=== PATIENT | male | born 1960 | race Asian ===

== ENCOUNTER 2021-03-14 07:50 | Outpatient (REF) | payer OTHER, SELFPAY ==
[2021-03-14 11:27] LABS: Alanine Aminotransferase 19 U/L (0-40); Albumin Level 4.2 g/dL (3.5-5.0); Alkaline Phosphatase 42 U/L (39-117); Anion Gap 11 (12-20); Aspartate Amino Transferase 18 U/L (5-37); Bilirubin Total 0.8 mg/dL (0.0-1.0); Blood Urea Nitrogen 18 mg/dL (9-16); Carbon Dioxide 28 mmol/L (22-29); Chloride 108 mmol/L (96-108); Cholesterol 187 mg/dL; Estimated Glomerular Filt Rate > 60; Glucose Fasting 91 mg/dL (60-99); HDL Cholesterol 49 mg/dL; LDL Cholesterol Calculated 120 mg/dl; Potassium 4.6 mmol/L (3.3-5.1); Sodium 142 mmol/L (135-145); Triglycerides 94 mg/dL
[2021-03-14 11:50] LABS: TSH reflex Free T4 2.05 uIU/mL (0.32-4.0); Vitamin D 25-OH Total 23.2 ng/mL (>30)
== END 2021-03-14 07:51 | disposition home or self-care (01) ==
LOC: HO.WFDLDS 07:50
PROVIDERS: Visit Provider Family Medicine
DX: Z00.00 Encounter for general adult medical examination without abnormal findings (principal); E55.9 Vitamin D deficiency, unspecified
CPT/HCPCS: 36415; 80053; 80061; 82306; 84443

== ENCOUNTER 2022-01-17 07:36 | Outpatient (REF) | payer OTHER, SELFPAY ==
[2022-01-17 11:25] LABS: MANUAL DIFF FLAG NO
[2022-01-17 11:49] LABS: Basophils Percent Auto 0.5 % (0-2); Eosinophils Absolute Auto 0.2 X10*3/uL (0.0-0.4); Hematocrit 43.4 % (42.0-52.0); Hemoglobin 13.2 g/dl (14.0-18.0); Imm Gran Abs Auto 0.03 X10*3/uL (0.00-0.03); Imm Gran Pct Auto 0.5 % (0.0-0.4); Lymphocytes Absolute Auto 1.9 X10*3/uL (1.2-4.9); Lymphocytes Percent Auto 30.6 % (20-40); Mean Corpuscular HGB Conc 30.4 g/dl (31.0-36.0); Mean Corpuscular Hemoglobin 19.9 pg (27.0-33.0); Mean Corpuscular Volume 65.6 fL (80.0-98.0); Monocytes Absolute Auto 0.5 X10*3/uL (0.1-1.2); Monocytes Percent Auto 7.3 % (2-11); Neutrophils Absolute Auto 3.7 x10*3/uL (2.0-8.3); Neutrophils Percent Auto 58.1 % (45-73); Platelet Count 214 X10*3/uL (160-400); Red Blood Count 6.62 X10*6/uL (4.60-5.80); Red Cell Distribution Width 17.3 % (11.0-16.0); White Blood Count 6.3 X10*3/uL (4.8-10.8)
[2022-01-17 12:03] LABS: Alanine Aminotransferase 20 U/L (0-40); Albumin Level 4.1 g/dL (3.5-5.0); Alkaline Phosphatase 43 U/L (39-117); Anion Gap 9 (12-20); Aspartate Amino Transferase 20 U/L (5-37); Bilirubin Total 0.6 mg/dL (0.0-1.0); Blood Urea Nitrogen 15 mg/dL (9-16); Carbon Dioxide 30 mmol/L (22-29); Chloride 106 mmol/L (96-108); Estimated Glomerular Filt Rate > 60; Glucose Random 103 mg/dL (60-115); Iron 78 mcg/dL (45-160); Percent Iron Saturation 28 % (15-50); Potassium 4.3 mmol/L (3.3-5.1); Sodium 141 mmol/L (135-145); Total Iron Binding Capacity 279 mcg/dL (228-428); Total Protein 6.9 g/dL (6.5-8.0); Unsaturated Iron Binding 201 ug/dL
== END 2022-01-17 07:37 | disposition home or self-care (01) ==
LOC: HO.WFDLDS 07:36
PROVIDERS: Visit Provider Family Medicine
DX: Z00.00 Encounter for general adult medical examination without abnormal findings (principal); D64.9 Anemia, unspecified
CPT/HCPCS: 36415; 80053; 83540; 85025

== ENCOUNTER 2022-02-27 08:25 | Day surgery (SDC) | payer OTHER, SELFPAY ==
--- NOTE | 2022-02-23 15:34 | HO.ANESPROP2 ---
Documented by User: Yahaira Bain NP 02/23/22 15:34 HPI - Anesthesia Eval Consult details Narrative: 62yo M for Colonoscopy [facility] Active Problems Active Problems: All Active Problems (Updated 02/21/22 @ 16:17 by Elvia Mancilla RN) Hypertension, essential (Acute) Vitamin D deficiency (Acute) Erectile dysfunction (Acute) Borderline anemia (Acute) Knee clicking (Acute) Low vitamin D level (Acute) Past Medical History Medical History HTN (hypertension) Family History Family History Father No problems noted. Mother Diabetes Hypertension Sister Colon cancer Daughter In good health Son No problems noted. Son No problems noted. Surgical History Surgical History History of lumbar surgery Hx of colonoscopy Social History Social History (Updated 03/30/21 @ 11:57 by [employer]igs[employer]Book Adkins) Housing: House Patient Tobacco Use Status: Never used Tobacco Use of substances other than those prescribed or required for medical reasons: No Are you DNR?: No Advance Directives: No Advance Directives Information Provided: Yes Current occupational status: employed Meds Allergies Allergy/AdvReac Type Severity Reaction Status Date / Time No Known Allergies Allergy Verified 02/27/22 08:52 Exam Exam Date and Time: February 23, 2022 1534 Pertinent Lab Results Pertinent Lab Results: Laboratory Tests 01/17/22 01/17/22 07:40 07:40 WBC 6.3 Hgb 13.2 L Hct 43.4 Plt Count 214 Sodium 141 Potassium 4.3 Chloride 106 Carbon Dioxide 30 H BUN 15 Creatinine 0.95 Assessment and Plan Assessment Anesthesia Assessment: Chart Reviewed Documented by User: Manohar Lennon MD 02/27/22 09:28 PMFSH Past Medical History Medical History HTN (hypertension) Family History Family History Father No problems noted. Mother Diabetes Hypertension Sister Colon cancer Daughter In good health Son No problems noted. Son No problems noted. Family history of problems with anesthesia: No Surgical History Surgical History History of lumbar surgery Hx of colonoscopy History of Problems with Anesthesia: No Social History Social History (Updated 03/30/21 @ 11:57 by [employer] Jed) Housing: House Patient Tobacco Use Status: Never used Tobacco Use of substances other than those prescribed or required for medical reasons: No Are you DNR?: No Advance Directives: No Advance Directives Information Provided: Yes Current occupational status: employed Meds Allergies Allergy/AdvReac Type Severity Reaction Status Date / Time No Known Allergies Allergy Verified 02/27/22 08:52 Exam Airway Mallampati Class: II TM Dist: >3cm Neck ROM: Full Loose/Missing/Broken Teeth: Yes, Upper and Lower Assessment and Plan Assessment Anesthesia Assessment: Anesthesia Plan Discussed Final Anesthetic Review Family History of Problems with Anesthesia: No History of Problems with Anesthesia: No NPO: Yes ASA Class: II Final Preanesthetic Review: No Changes in Pt Med Stat, Meds/Allgs Chart Reviewed, Consent Obtained/Reviewed and Anes Risks/Benef Reviewed Patient Risk: Low Procedure Risk: Low Anesthetic Plan Anesthetic Plan: MAC: Disposition: Standard PACU
[2022-02-27 08:53] VITALS: BMI 24.7
[2022-02-27 09:02] VITALS: BP 136/72; PULSE 61; RESP 15; TEMP 36.6; O2SAT 98
[2022-02-27] MEDS: Lactated Ringers 1,000 ML 100 ML IVCONT (09:10)
[2022-02-27 10:33] VITALS: BP 88/45; PULSE 50; RESP 16; TEMP 36.1; O2SAT 97
--- NOTE | 2022-02-27 10:40 | PM.OP ---
Brief Operative Note Date of Service: 02/27/22 Pre-op diagnosis: Screening Post-op diagnosis: other (Rectal polyp) Procedure: Colonoscopy to the cecum with bx/removal of polyp Surgeon: Gagandeep Zazueta Anesthesia: MAC Was an Bean Snapper used for this Procedure?: No Estimated blood loss (mL): 2.0 Pathology: other (A. Rectal polyp) Condition: stable Disposition: PACU
[2022-02-27 10:48] VITALS: BP 95/56; PULSE 53; RESP 16; O2SAT 100
[2022-02-27 11:03] VITALS: BP 139/55; PULSE 54; RESP 16; TEMP 36.1; O2SAT 98
--- NOTE | 2022-02-27 22:16 | OP_ITS ---
SURGEON: Gagandeep Zazueta MD INDICATIONS: The patient presents for evaluation of colorectal cancer screening and personal history of tubular adenoma of the colon. Full consent was obtained from him for this, including risks of bleeding and perforation. PREOPERATIVE DIAGNOSIS: Personal history of tubular adenoma of the colon. POSTOPERATIVE DIAGNOSIS: PROCEDURE PERFORMED: Colonoscopy to the cecum with biopsy removal of polyp. ESTIMATED BLOOD LOSS: COMPLICATIONS: ANESTHESIA: Preop medication used, monitored anesthesia care. ASSISTANTS: SPECIMENS: POSTOPERATIVE DIAGNOSES: Personal history of tubular adenoma of the colon, small colon polyp, diverticulosis, and internal hemorrhoids. DESCRIPTION OF PROCEDURE: The patient was placed in the left lateral decubitus position. The digital rectal exam revealed no abnormalities. The Olympus videopediatric colonoscope was entered into the rectum and advanced easily to the cecum. Once in the cecum, I did identify normal-appearing cecal pouch with appendiceal orifice and a normal-appearing ileocecal valve. The entire cecum and ileocecal valve appeared normal. There was transillumination of light deep in the right lower quadrant. The scope was slowly withdrawn assessing all mucosal surfaces carefully. Preparation was excellent. There was a mild amount of sigmoid diverticulosis. I did not visualize any sign of colitis nor angiodysplasia. The only polyp I visualized was in the proximal rectum. This was approximately 3 or 4 mm in diameter and was biopsied and completely removed with cold biopsy forceps. The scope was retroflexed in the rectum visualizing internal hemorrhoids, but no other pathology. The scope was straightened and withdrawn from the patient. He tolerated the procedure well and was returned to the recovery area in stable condition. IMPRESSION: 1. Small rectal polyp, status post biopsy removal. 2. Diverticulosis. 3. Internal hemorrhoids. PLAN: The results of biopsy will be checked. I would recommend a repeat colonoscopy in 5 years for further surveillance. He will otherwise see me on a p.r.n. basis. MD ELISA Rodriguez/LISA / [id number]
== END 2022-02-27 11:23 | disposition home or self-care (01) ==
PROVIDERS: PCP Family Medicine; Visit Provider Internal Medicine
PROC: 0DJD8ZZ Inspection of Lower Intestinal Tract, Via Natural or Artificial Opening Endoscopic (ICD-10-PCS; CPT 45378; principal; 2022-02-27 09:30)
DX: Z12.11 Encounter for screening for malignant neoplasm of colon (principal); Z86.010 Personal history of colon polyps; D12.8 Benign neoplasm of rectum; K57.30 Diverticulosis of large intestine without perforation or abscess without bleeding; K64.8 Other hemorrhoids; Z80.0 Family history of malignant neoplasm of digestive organs; I10 Essential (primary) hypertension; Z79.899 Other long term (current) drug therapy
CPT/HCPCS: 45380; 88305

== ENCOUNTER 2022-03-02 07:10 | Outpatient (REF) | payer OTHER, SELFPAY ==
[2022-03-02 07:31] LABS: MANUAL DIFF FLAG NO
[2022-03-02 08:12] LABS: Basophils Absolute Auto 0.1 X10*3/uL (0.0-0.2); Basophils Percent Auto 0.8 % (0-2); Eosinophils Absolute Auto 0.2 X10*3/uL (0.0-0.4); Hematocrit 42.3 % (42.0-52.0); Hemoglobin 13.1 g/dl (14.0-18.0); Imm Gran Abs Auto 0.02 X10*3/uL (0.00-0.03); Imm Gran Pct Auto 0.3 % (0.0-0.4); Lymphocytes Absolute Auto 1.8 X10*3/uL (1.2-4.9); Lymphocytes Percent Auto 27.9 % (20-40); Mean Corpuscular Hemoglobin 20.1 pg (27.0-33.0); Monocytes Absolute Auto 0.5 X10*3/uL (0.1-1.2); Monocytes Percent Auto 7.3 % (2-11); Neutrophils Absolute Auto 3.9 x10*3/uL (2.0-8.3); Neutrophils Percent Auto 60.7 % (45-73); Platelet Count 215 X10*3/uL (160-400); Red Blood Count 6.51 X10*6/uL (4.60-5.80); Red Cell Distribution Width 17.8 % (11.0-16.0); White Blood Count 6.4 X10*3/uL (4.8-10.8)
[2022-03-02 08:30] LABS: Alanine Aminotransferase 16 U/L (0-40); Alkaline Phosphatase 43 U/L (39-117); Anion Gap 11 (12-20); Aspartate Amino Transferase 16 U/L (5-37); Bilirubin Total 0.7 mg/dL (0.0-1.0); Blood Urea Nitrogen 14 mg/dL (9-16); Carbon Dioxide 30 mmol/L (22-29); Chloride 107 mmol/L (96-108); Estimated Glomerular Filt Rate > 60; Glucose Fasting 102 mg/dL (60-99); Iron 73 mcg/dL (45-160); Percent Iron Saturation 27 % (15-50); Potassium 4.7 mmol/L (3.3-5.1); Sodium 143 mmol/L (135-145); Total Iron Binding Capacity 269 mcg/dL (228-428); Total Protein 6.7 g/dL (6.5-8.0); Unsaturated Iron Binding 196 ug/dL
[2022-03-02 08:38] LABS: Appearance Urine CLOUDY; Color Urine YELLOW; Glucose Urine UA NEG (NEG); Leukocyte Esterase Urine NEG (NEG); Nitrite Urine NEG (NEG); PH 6.5 (5.0-8.0); Urine Blood NEG (NEG); Urine Ketones NEG (NEG); Urine Protein NEG (NEG-TRACE)
[2022-03-02 08:52] LABS: Creatinine Urine 95.84 mg/dL; Microalbumin Urine < 5.0 mg/L
[2022-03-02 08:54] LABS: TSH reflex Free T4 1.52 uIU/mL (0.32-4.0); Vitamin D 25-OH Total 28.4 ng/mL (>30)
== END 2022-03-02 07:11 | disposition home or self-care (01) ==
LOC: HO.LAB 07:10
PROVIDERS: PCP Family Medicine; Visit Provider Family Medicine
DX: Z00.00 Encounter for general adult medical examination without abnormal findings (principal); R79.89 Other specified abnormal findings of blood chemistry; I10 Essential (primary) hypertension; D64.9 Anemia, unspecified; E55.9 Vitamin D deficiency, unspecified
CPT/HCPCS: 36415; 80053; 81003; 82043; 82306; 83540; 84443; 85025

== ENCOUNTER 2022-06-13 08:34 | Outpatient (REF) | payer OTHER, SELFPAY ==
[2022-06-13 11:24] LABS: MANUAL DIFF FLAG NO
[2022-06-13 11:52] LABS: Basophils Absolute Auto 0.1 X10*3/uL (0.0-0.2); Eosinophils Absolute Auto 0.2 X10*3/uL (0.0-0.4); Hematocrit 44.4 % (42.0-52.0); Hemoglobin 13.9 g/dl (14.0-18.0); Imm Gran Abs Auto 0.03 X10*3/uL (0.00-0.03); Imm Gran Pct Auto 0.5 % (0.0-0.4); Immature Retic Fraction 27.8 % (2.3-13.4); Lymphocytes Absolute Auto 1.4 X10*3/uL (1.2-4.9); Lymphocytes Percent Auto 23.8 % (20-40); Mean Corpuscular HGB Conc 31.3 g/dl (31.0-36.0); Mean Corpuscular Hemoglobin 20.5 pg (27.0-33.0); Mean Corpuscular Volume 65.4 fL (80.0-98.0); Monocytes Absolute Auto 0.4 X10*3/uL (0.1-1.2); Monocytes Percent Auto 7.1 % (2-11); Neutrophils Absolute Auto 3.7 x10*3/uL (2.0-8.3); Neutrophils Percent Auto 64.6 % (45-73); Platelet Count 217 X10*3/uL (160-400); Red Blood Count 6.79 X10*6/uL (4.60-5.80); Red Cell Distribution Width 17.9 % (11.0-16.0); Retic HGB Equivalent 24.6 pg (30.0-35.0); Reticulocyte Percent 1.8 % (0.5-1.8); Reticulocytes Absolute 0.122 X10*6/uL (0.026-0.095); White Blood Count 5.8 X10*3/uL (4.8-10.8)
[2022-06-13 12:18] LABS: Alanine Aminotransferase 30 U/L (0-40); Albumin Level 4.1 g/dL (3.5-5.0); Alkaline Phosphatase 44 U/L (39-117); Anion Gap 11 (12-20); Aspartate Amino Transferase 26 U/L (5-37); Bilirubin Total 0.7 mg/dL (0.0-1.0); Blood Urea Nitrogen 17 mg/dL (9-16); Calcium 9.1 mg/dL (8.4-10.2); Carbon Dioxide 31 mmol/L (22-29); Chloride 106 mmol/L (96-108); Estimated Glomerular Filt Rate > 60; Ferritin 156 ng/mL (20-250); Glucose Random 100 mg/dL (60-115); Iron 130 mcg/dL (45-160); Percent Iron Saturation 48 % (15-50); Potassium 4.5 mmol/L (3.3-5.1); Sodium 143 mmol/L (135-145); TSH reflex Free T4 1.41 uIU/mL (0.32-4.0); Total Iron Binding Capacity 273 mcg/dL (228-428); Total Protein 6.9 g/dL (6.5-8.0); Unsaturated Iron Binding 143 ug/dL; Vitamin D 25-OH Total 33.3 ng/mL (>30)
[2022-06-13 12:47] LABS: Folate 14.6 ng/mL (> or = 4.0); Vitamin B12 417 pg/mL (200-900)
== END 2022-06-13 08:35 | disposition home or self-care (01) ==
LOC: HO.WFDLDS 08:34
PROVIDERS: Visit Provider Family Medicine
DX: Z00.00 Encounter for general adult medical examination without abnormal findings (principal); E55.9 Vitamin D deficiency, unspecified; D64.9 Anemia, unspecified; E53.8 Deficiency of other specified B group vitamins
CPT/HCPCS: 36415; 80053; 82306; 82607; 82728; 82746; 83540; 84443; 85025; 85045

== ENCOUNTER 2022-09-21 08:03 | Outpatient (REF) | payer OTHER, SELFPAY ==
[2022-09-21 11:14] LABS: MANUAL DIFF FLAG NO
[2022-09-21 11:29] LABS: Basophils Absolute Auto 0.1 X10*3/uL (0.0-0.2); Eosinophils Absolute Auto 0.2 X10*3/uL (0.0-0.4); Eosinophils Percent Auto 3.7 % (0-4); Hematocrit 46.1 % (42.0-52.0); Hemoglobin 14.3 g/dl (14.0-18.0); Imm Gran Abs Auto 0.02 X10*3/uL (0.00-0.03); Imm Gran Pct Auto 0.3 % (0.0-0.4); Lymphocytes Absolute Auto 1.5 X10*3/uL (1.2-4.9); Lymphocytes Percent Auto 24.8 % (20-40); Mean Corpuscular Hemoglobin 20.4 pg (27.0-33.0); Mean Corpuscular Volume 65.8 fL (80.0-98.0); Monocytes Absolute Auto 0.4 X10*3/uL (0.1-1.2); Monocytes Percent Auto 6.8 % (2-11); Neutrophils Absolute Auto 3.8 x10*3/uL (2.0-8.3); Neutrophils Percent Auto 63.4 % (45-73); Platelet Count 233 X10*3/uL (160-400); Red Blood Count 7.01 X10*6/uL (4.60-5.80); Red Cell Distribution Width 17.7 % (11.0-16.0)
[2022-09-21 11:49] LABS: Alanine Aminotransferase 39 U/L (0-40); Albumin Level 4.2 g/dL (3.5-5.0); Alkaline Phosphatase 45 U/L (39-117); Anion Gap 12 (12-20); Aspartate Amino Transferase 32 U/L (5-37); Bilirubin Total 1.1 mg/dL (0.0-1.0); Blood Urea Nitrogen 18 mg/dL (9-16); Calcium 9.3 mg/dL (8.4-10.2); Carbon Dioxide 29 mmol/L (22-29); Chloride 106 mmol/L (96-108); Cholesterol 211 mg/dL; Estimated Glomerular Filt Rate > 60; Glucose Fasting 95 mg/dL (60-99); HDL Cholesterol 61 mg/dL; LDL Cholesterol Calculated 138 mg/dl; Potassium 4.4 mmol/L (3.3-5.1); Sodium 143 mmol/L (135-145); Total Protein 6.9 g/dL (6.5-8.0); Triglycerides 61 mg/dL
[2022-09-21 12:06] LABS: Appearance Urine Clear; Color Urine Yellow; Glucose Urine UA Negative (Negative); Leukocyte Esterase Urine Negative (Negative); Nitrite Urine Negative (Negative); Specific Gravity - Urine 1.025 (1.005-1.025); Urine Blood Negative (Negative); Urine Ketones Negative (Negative); Urine Protein Negative (Neg-Trace)
[2022-09-21 13:00] LABS: Microalbum/Creatinine Ratio Ur 5.4 ug/mg cr
== END 2022-09-21 08:04 | disposition home or self-care (01) ==
LOC: HO.WFDLDS 08:03
PROVIDERS: Visit Provider Family Medicine
DX: Z00.00 Encounter for general adult medical examination without abnormal findings (principal); I10 Essential (primary) hypertension
CPT/HCPCS: 36415; 80053; 80061; 81003; 82043; 84443; 85025

== ENCOUNTER 2023-02-27 11:51 | Outpatient (AMB) | payer OTHER, SELFPAY ==
--- NOTE | 2023-02-27 12:02 | MHC.PC.OV ---
Vital Signs 02/27/23 12:12 Weight 158 lb 6 oz BP 120/72 Blood Pressure Location Lt brachial Position Left Lateral Respiration 14 Pulse 73 Pulse Source Pulse Oximeter Temp 98.4 F Intake Visit Reasons: Growth on left side of stomach Intake Note: for growth left abd Reservoir Caretaker Required: No Accompanied by: Self / Same As Patient Allergies No Known Allergies Allergy (Verified 06/16/22 11:54) Medication List - Last Reconciled 02/27/23 by Elvia Covington, RN cholecalciferol (vitamin D3) 50 mcg PO DAILY ferrous sulfate 324 mg PO DAILY 30 days losartan 12.5 mg (1/2 x 25 mg) PO DAILY 90 days tadalafil 20 mg PO DAILY PRN 30 days Tobacco use date assessed: 03/30/21 Dental Screening Did you have a dental visit in the last 12 months?: Yes HPI Growth on left side of stomach HPI Details 63 y/o male presents for a skin tag at L abdomen. HPI Comments History of Present Illness Details growth right abd. fyi pt states he is taking vit d 1x/week and ferrous sulfate 1-2xs/week PFSH Medical History HTN (hypertension) Surgical History History of lumbar surgery Hx of colonoscopy Family History Father No problems noted. Mother Diabetes Hypertension Sister Colon cancer Daughter In good health Son No problems noted. Son No problems noted. Social History Housing: House Patient Tobacco Use Status: Never used Tobacco Current occupational status: employed Cognitive needs: No Hearing needs: No Vision needs: Yes Questionnaire Thrive Questionnaire Date Thrive assessed: 03/30/21 DUSTY-7 AMB Questionnaire DUSTY-7 Date DUSTY - 7 assessed: 03/30/21 Source: Developed by Drs. Gagandeep Tejeda, Sheryl Roca, Dallas Schneider and colleagues, with an educational alyson from [employer]. Physical exam (Primary Care) Vital Signs: Last Vital Signs Temp 98.4 F 02/27/23 12:12 Pulse 73 02/27/23 12:12 Resp 14 02/27/23 12:12 BP 120/72 02/27/23 12:12 Tobacco/Smoking Status: Tobacco use Status Tobacco use date assessed 03/30/21 02/27/23 12:04 Patient Tobacco Use Status Never used Tobacco 02/27/23 12:04 Tobacco use type 02/27/23 12:11 Thrive Assessment: Date of Thrive Assessment Date Thrive assessed 03/30/21 02/27/23 12:04 Skin Other: Bifurcated palpoid skin tag about 1cm in diameter each Assessment and Plan Assessment & Plan (1) Skin tag: Code(s): L91.8 - Other hypertrophic disorders of the skin Plan: Persistent large skin tag at left abdomen, waist band region. Patient has had to treatments already. Lesion prepped and draped in the usual fashion. Used his to freeze cryotherapy freeze in 3 freeze/thaw cycles. Reviewed with patient what to expect following this procedure. Given that patient has already had two cryotherapy treatments already, I have treated today but I have made a referral to Dermatology. He cancel this if treatment is fully successful. Otherwise can follow-up with Dermatology. Medications: Refilled losartan 12.5 mg (1/2 x 25 mg) PO DAILY 45 tabs 0RF 90 days tadalafil administer approximately 30min before sexual activity; do not use more than 1 dose per 24hrs 20 mg PO DAILY PRN 30 tabs 5RF sexual activity 30 days N52.9 - Male erectile dysfunction, unspecified cholecalciferol (vitamin D3) 50 mcg PO DAILY 90 caps 3RF D64.9 - Anemia, unspecified Coding Level of Care Code Est Pt Level 3 (11966) Diagnoses Skin tag L91.8
[2023-02-27 12:12] VITALS: BP 120/72; PULSE 73; RESP 14; TEMP 36.9
== END 2023-02-27 12:57 | disposition home or self-care (01) ==
PROVIDERS: Visit Provider Family Medicine
DX: L91.8 Other hypertrophic disorders of the skin (principal)
CPT/HCPCS: 99213

== ENCOUNTER 2023-11-14 11:47 | Outpatient (AMB) | payer OTHER, SELFPAY ==
--- NOTE | 2023-11-14 11:52 | A.OFFPC_ITS ---
Vital Signs 11/14/23 11:59 Height 5 ft 7 in Weight 166 lb 6 oz BMI 26.1 BP 138/82 Blood Pressure Location Lt brachial Position Sitting Respiration 16 Pulse 71 Pulse Source Pulse Oximeter Temp 98.2 F Temp Source Oral Pulse Oximetry (%) 97 Oxygen Delivery Method Room Air Intake Visit Reasons: f/u Intake Note: Follow up. Right knee pain, trouble bending. Home bp cuff reading 137/84 Person Investigator Required: No Allergies No Known Allergies Allergy (Verified 11/14/23 11:53) Tobacco use date assessed: 11/14/23 Dental Screening Dental Screen Date: 11/14/23 Did you have a dental visit in the last 12 months?: Yes Did you have a dental problem in the last 6 months where you did not have access to dental care?: No Was dental information given to patient?: Patient has dentist HPI f/u HPI Details 63 y/o male [facility] Pt has complaints of R knee pain. He reports he feels clicking in there. He walks about 3 miles a day and notes the last couple days he might have overdone his exercise. Pt notes he is due for a tetatnus shot. [facility] Medical History HTN (hypertension) Surgical History History of lumbar surgery Hx of colonoscopy Family History Father No problems noted. Mother Diabetes Hypertension Sister Colon cancer Daughter In good health Son No problems noted. Son No problems noted. Social History Housing: House Patient Tobacco Use Status: Never used Tobacco e-Cigarette/Vaping Use: Never Used Second Hand Smoke Exposure: No Current occupational status: employed Cognitive needs: No Hearing needs: No Vision needs: Yes Questionnaire PHQ-9 Over the last 2 weeks, how often have you been bothered by any of the following problems? 1. Little interest or pleasure in doing things: not at all 2. Feeling down, depressed, or hopeless: not at all 3. Trouble falling or staying asleep, or sleeping too much: not at all 4. Feeling tired or having little energy: not at all 5. Poor appetite or overeating: not at all 6. Feeling bad about yourself - or that you are a failure or have let yourself or your family down: not at all 7. Trouble concentrating on things, such as reading the newspaper or watching television: not at all 8. Moving or speaking so slowly that other people could have noticed. Or the opposite - being so fidgety or restless that you have been moving around a lot more than usual: not at all 9. Thoughts that you would be better off or of hurting yourself in some way: not at all Total score: 0 Depression Screening Interpretation: Negative Depression Screening Done: Yes 80365 - PHQ-9 Billing: Yes Source: Developed by Drs. Gagandeep Tejeda, Sheryl Roca, Dallas Schneider and colleagues, with an educational alyson from [employer]. Thrive Questionnaire Date Thrive assessed: 11/14/23 I am a: Patient What is your living situation today?: I have a steady place to live Within the past 12 months, did the food you bought not last and you didn't have the money to get more?: Never true Within the past 12 months, did you worry whether your food would run out before you got money to buy more?: Never true Do you have trouble paying for medicines?: No Do you have trouble getting transportation to medical appointments?: No Do you have trouble paying your heating and electricity bill?: No Do you have trouble taking care of your child, family member or friend?: No Do you have trouble with day-to-day activities such as bathing, preparing meals, shopping, managing finances, etc.?: No Are you currently unemployed and looking for a job?: No Are you interested in more education?: No Please select the resources that you would like help with: None Currently or been in a relationship where the following occur: no concerns reported THRIVE Score: 0 AUDIT C Alcohol Use Questionnaire (AUDIT-C) 1. How often do you have a drink containing alcohol?: Never 3. How often do you have six or more drinks on one occasion?: Never Total Score: 0 DUSTY-7 AMB Questionnaire DUSTY-7 Date DUSTY - 7 assessed: 11/14/23 Feeling nervous, anxious, or on edge: 0 = Not at all Not being able to stop or control worryin = Not at all Worrying too much about different things: 0 = Not at all Trouble relaxin = Not at all Being so restless that it is hard to sit still: 0 = Not at all Becoming easily annoyed or irritable: 0 = Not at all Feeling afraid as if something awful might happen: 0 = Not at all Total DUSTY-7 score (0-4 normal; 5-9 mild; 10-14 moderate; 15-21 severe): 0 Source: Developed by Drs. Gagandeep Tejeda, Sheryl Roca, Dallas Schneider and colleagues, with an educational alyson from [employer]. DUSTY-7 Assessment Billing DUSTY-7 Assessment Tool: DUSTY-7 Assessment 78177 Physical exam (Primary Care) Vital Signs: Last Vital Signs Temp 98.2 F 11/14/23 11:59 Pulse 71 11/14/23 11:59 Resp 16 11/14/23 11:59 BP 138/82 11/14/23 11:59 Pulse Ox 97 11/14/23 11:59 Oxygen Delivery Method Room Air 11/14/23 11:59 BMI result Body Mass Index 26.1 Tobacco/Smoking Status: Tobacco use Status Tobacco use date assessed 11/14/23 11/14/23 12:01 Patient Tobacco Use Status Never used Tobacco 11/14/23 11:52 Tobacco use type 09/26/23 10:02 e-Cigarette/Vaping Use Never Used 11/14/23 12:01 PHQ-9: PHQ-9 Score PHQ-9: Total score 0 11/14/23 14:18 Depression Screening Interpretation: Negative Thrive Assessment: Date of Thrive Assessment Date Thrive assessed 11/14/23 11/14/23 12:01 Currently or been in a relationship where the following occur: no concerns reported Immunizations Boostrix Tdap 2.5 Lf unit-8 mcg-5 Lf/0.5 mL intramuscular syringe Performing Provider: Spenser Tadeo MD Performing Location[place] [facility] [place] [facility] Administered by: Maria Elena Carbone CMA on 11/14/23 14:18 Dose Route Admin Location Dispensed Lot Number Expiration Date NDC Cellophane Bath Mixer 0.5 mL IM Left Deltoid 0.5 mL [id number] 12/01/25 [id number] [employer] VIS Given Date VIS Provided VIS Publication Date 11/14/23 Single Vaccine 21 Eligibility Eligibility Date Funding Source Not [facility] Eligible 11/14/23 Private Assessment and Plan Assessment & Plan (1) Right knee pain: Code(s): M25.561 - Pain in right knee Plan: Right?knee?discomfort?with?clicking?sensation.??Mild?swelling?without?erythema?o r?warmth. Denies?locking?or?instability Likely?tendinitis. Start?physical?therapy Will?check?x-ray Can?use?glucosamine-chondroitin?and?ibuprofen?OTC (2) Hypertension, essential: Code(s): I10 - Essential (primary) hypertension Plan: Blood?pressures?at?home?are?still?too?high?as?he?notes?systolic?BPs?get?up?into? the?150s Increase?losartan?from?12.5?to?25?mg?daily (3) Immunization counseling: Code(s): Z71.85 - Encounter for immunization safety counseling Plan: Due?for?Tdap?which?he?will?receive?today Orders: Orders TDaP Immunization Today Z23 - Encounter for immunization XR knee RT 3V Today M25.561 - Pain in right knee Medications: New antiarthritic combination no.2 (glucosamine-chondroitin) 900 mg PO BID 60 tabs 2RF 30 days Changed From losartan 12.5 mg (1/2 x 25 mg) PO DAILY 90 days 45 tabs 0RF To losartan 25 mg PO DAILY 90 tabs 3RF 90 days Coding Level of Care Code Est Pt Level 3 (67433) Diagnoses Right knee pain M25.561 Hypertension, essential I10 Immunization counseling Z71.85 Additional Codes DUSTY-7 Assessment Billing - DUSTY-7 Assessment Tool: DUSTY-7 Assessment 17576 ([id number])
[2023-11-14 11:59] VITALS: BP 138/82; PULSE 71; RESP 16; TEMP 36.8; O2SAT 97; BMI 26.1
== END 2023-11-14 12:30 | disposition home or self-care (01) ==
PROVIDERS: PCP Family Medicine; Visit Provider Family Medicine
DX: M25.561 Pain in right knee (principal); I10 Essential (primary) hypertension; Z71.85 Encounter for immunization safety counseling; Z23 Encounter for immunization
CPT/HCPCS: 90471; 90715; 99213

== ENCOUNTER 2024-03-01 07:35 | Outpatient (REF) | payer OTHER, SELFPAY ==
--- NOTE | ~2024-03-01 | XR_ITS ---
EXAMINATION: XR KNEE, RIGHT CLINICAL INFORMATION: Pain COMPARISON: None available. TECHNIQUE: Three views of the right knee. FINDINGS: Moderate joint effusion. Grouped calcific/ossific bodies are seen along the anterior superior aspect of the tibia on the lateral view, but are difficult to confirm with certainty on the frontal view. Small calcifications are seen lateral to the lateral femoral condyle on the frontal view. XR/XR knee RT 3V IMPRESSION: 1. Moderate joint effusion. 2. Grouped calcific/ossific bodies are seen along the anterior superior aspect of the tibia on the lateral view, but are difficult to confirm with certainty on the frontal view. Small calcifications are seen lateral to the lateral femoral condyle on the frontal view. Correlation with clinical exam recommended to determine further management including possible additional imaging with CT scan. Electronically signed by: Michelle Jorge MD 03/25/2024 12:37 PM EDT
== END 2024-03-01 07:36 | disposition home or self-care (01) ==
LOC: HO.XRAY 07:35
PROVIDERS: PCP Family Medicine; Visit Provider Family Medicine
DX: M25.561 Pain in right knee (principal)
CPT/HCPCS: 73562

== ENCOUNTER 2024-03-07 14:16 | Outpatient (AMB) | payer OTHER, SELFPAY ==
--- NOTE | 2024-03-07 14:18 | MHC.OFFWIV ---
Intake Vital Signs 03/07/24 14:19 Height 5 ft 7 in Weight 159 lb BMI 24.9 BP 122/76 Blood Pressure Location Rt brachial Position Sitting Pulse 77 Pulse Source Pulse Oximeter Temp 97.9 F Temp Source Oral Pulse Oximetry (%) 96 Oxygen Delivery Method Room Air Intake Visit Reasons: EP stepped on nail LT foot Intake Note: pt c/o puncture LT foot. Stepped on nail 2 hours ago Patient Tobacco Use Status: Never used Tobacco Allergies No Known Allergies Allergy (Verified 03/07/24 14:18) Do you need a note to return to daycare/school/sports/work: No HPI HPI Comments History of Present Illness Details Patient is a 64-year-old male who states he stepped on a nail approximately 2 hours ago. He states he stepped on a 50-year-old male with his left foot and it was bleeding quite a bit. His had him come in because it did not know when he had his last tetanus. He can move his toes and his ankle in his foot the same and he said it is not very painful or swollen. [facility] Medical History HTN (hypertension) Surgical History History of lumbar surgery Hx of colonoscopy Family History Father No problems noted. Mother Diabetes Hypertension Sister Colon cancer Daughter In good health Son No problems noted. Son No problems noted. Social History Housing: House Patient Tobacco Use Status: Never used Tobacco e-Cigarette/Vaping Use: Never Used Second Hand Smoke Exposure: No Current occupational status: employed Cognitive needs: No Hearing needs: No Vision needs: Yes Review of Systems Const All systems reviewed & are unremarkable except as noted in HPI and below Physical Exam Vital Signs: Last Vital Signs Temp 97.9 F 03/07/24 14:19 Pulse 77 03/07/24 14:19 BP 122/76 03/07/24 14:19 Pulse Ox 96 03/07/24 14:19 Oxygen Delivery Method Room Air 03/07/24 14:19 BMI result Body Mass Index 24.9 Const General: cooperative, healthy appearing, comfortable, no acute distress and well developed Orientation/consciousness: patient oriented x3 Limitations: no limitations Neuro General: patient oriented x3 Extrem Left lower extremity: foot Details: normal capillary refill, normal to inspection, toes with normal ROM, no edema, puncture wound (Superficial) plantar lateral distal , vascular exam Details: normal capillary refill, tendon exam Details: active flexion normal and active extension normal and motor-sensory exam Details: light-touch normal; no tenderness, no unusual warmth, no abrasions, no ecchymosis and no foreign bodies Assessment & Plan Assessment & Plan (1) Puncture wound of foot: Code(s): S91.339A - Puncture wound without foreign body, unspecified foot, initial encounter Plan: Last Tdap was November 14, 2023 so patient is up-to-date, wound was very superficial bleeding was controlled, cleaned wound with alcohol wipe and applied Band-Aid. Gave patient red flag warning signs to watch out for infection. Plan See above Coding Level of Care Code Est Pt Level 2 (69514) Diagnoses Puncture wound of foot S91.339A
[2024-03-07 14:19] VITALS: BP 122/76; PULSE 77; TEMP 36.6; O2SAT 96; BMI 24.9
== END 2024-03-07 14:38 | disposition home or self-care (01) ==
PROVIDERS: PCP Family Medicine; Visit Provider Physician Assistant
DX: S91.339A Puncture wound without foreign body, unspecified foot, initial encounter (principal)
CPT/HCPCS: 99212

== ENCOUNTER 2025-02-27 08:49 | Outpatient (AMB) | payer OTHER, SELFPAY ==
--- OUTSIDE RECORDS SUMMARY | 2025-02-27 09:02 | XMS_ITS | Patient Health Record ---
Author Organization [facility] Address [address] [place] [address] Care Team Providers Care Drilling Engineer Name Role Phone Katie Sparks Primary Care Provider Gagandeep Monge [phone] Allergies No Known Allergies Reason For Referral No Information Medications Medication SIG (Take, Route, Frequency, Duration) Notes Start Date End Date Status Losartan Potassium 25 MG Oral for 30 Active Vitamin D 25 MCG (1000 UT) 1 tablet Oral ly Once a day for 30 day(s) Active Immunizations Vaccine Route Administration Date Status Comme nts Influenza Unknown 01/03/2022 Refused Problems Problem Type SNOMED Code ICD Code Onset Dates Problem Status W/U Status Risk Notes Problem 888747165 Encounter for screening for malignant neoplasm of colon (Z12.11) Active confirmed Problem 407767516 History of adenomatous polyp of colon (Z86.010) Active confirmed Problem History of polyp of colon (369600247) Personal history of colonic polyps (Z86.010) Active confirmed Problem Pre-procedure evaluation check (530958203) Encounter for other preprocedural examination (Z01.818) Active confirmed Problem Screening for malignant neoplasm of rectum (580191345) Encounter for screening for malignant neoplasm of rectum (Z12.12) Active confirmed Problem 09105779 Preprocedural examination (Z01.818) Active confirmed Problem 874862012 Family history o f colon cancer (Z80.0) Active confirmed Problem Diverticulosis of colon (871594931) Diverticulosis of colon (K57.30) Active confirmed Plan Of Treatment Pending Test Test Name Order Date Pathology 02/27/2022 Future Test Test Name Order Date COLONOSCOPY 02/03/2016 COLONOSCOPY 01/03/2022 Insurance Providers Payer Name Payer Address Payer Phone Subscriber Number Group Number Insured Name Patient Relationship to Insured Coverage Start Date Coverage End Date [employer] [address] [address] [place] [address] [id number] DANIELLE RICH Self - patient is the insured Medical (General) History Medical History History ICD Code Colonoscopy 02/23/2010--2 tu bular adenomas removed; colonoscopy 2015 with 2 small tubular adenomas removed Denies [place],DM,CVA,Lung disease,renal dise ase Hypertension Surgical History Surgery Date(Month/Year) HERNIATED DISC IN BACK 14-15 YEARS AGO
--- NOTE | 2025-02-27 09:26 | MHC.PC.OV ---
Vital Signs 02/27/25 09:29 Height 5 ft 7 in Weight 163 lb 6 oz BMI 25.6 BP 120/80 Blood Pressure Location Rt brachial Position Sitting Respiration 14 Pulse 59 Pulse Source Pulse Oximeter Temp 97.6 F Temp Source Oral Pulse Oximetry (%) 98 Oxygen Delivery Method Room Air Intake Visit Reasons: CPE with f/u labs and health maint. 30 mins Intake Note: patient is scheduled for cpe Human Resources Manager Manufacturing Required: No Allergies No Known Allergies Allergy (Verified 02/27/25 09:26) Medication List - Last Reconciled 02/27/25 by Spenser Tadeo MD glucosamine pearson 2KCl-chondroit 500-400 mg (Glucosamine-Chondroitin DS) 1 cap PO BID 90 days losartan 25 mg PO DAILY 90 days Tobacco use date assessed: 02/27/25 Fall risk assessment: No Falls in past year Last assessed Fall Risk: 02/27/25 Dental Screening Dental Screen Date: 02/27/25 Did you have a dental visit in the last 12 months?: Yes Did you have a dental problem in the last 6 months where you did not have access to dental care?: No Was dental information given to patient?: Patient has dentist HPI CPE with f/u labs and health maint. 30 mins HPI Details 65 y/o male presents for a CPE with f/u labs and health maint. No recent labs to review. BP today 120/80, 59p. He is on losartan 25mg daily. Reports morning high blood pressure. Notes hx of sleep apnea. [facility] Medical History HTN (hypertension) Surgical History Hx of colonoscopy History of lumbar surgery Family History Father No problems noted. Mother Diabetes Hypertension Sister Colon cancer Daughter In good health Son No problems noted. Son No problems noted. Social History Housing: House Patient Tobacco Use Status: Never used Tobacco e-Cigarette/Vaping Use: Never Used Second Hand Smoke Exposure: No service: No Current occupational status: employed Cognitive needs: No Hearing needs: No Vision needs: Yes Questionnaire PHQ-9 Over the last 2 weeks, how often have you been bothered by any of the following problems? 1. Little interest or pleasure in doing things: not at all 2. Feeling down, depressed, or hopeless: not at all 3. Trouble falling or staying asleep, or sleeping too much: not at all 4. Feeling tired or having little energy: not at all 5. Poor appetite or overeating: not at all 6. Feeling bad about yourself - or that you are a failure or have let yourself or your family down: not at all 7. Trouble concentrating on things, such as reading the newspaper or watching television: not at all 8. Moving or speaking so slowly that other people could have noticed. Or the opposite - being so fidgety or restless that you have been moving around a lot more than usual: not at all 9. Thoughts that you would be better off or of hurting yourself in some way: not at all Total score: 0 Depression Screening Interpretation: Negative Depression Screening Done: Yes 64217 - PHQ-9 Billing: Yes Source: Developed by Drs. Gagandeep Tejeda, Sheryl Roca, Dallas Schneider and colleagues, with an educational alyson from [employer]. Thrive Questionnaire Date Thrive assessed: 02/27/25 I am a: Patient What is your living situation today?: I have a steady place to live Within the past 12 months, did the food you bought not last and you didn't have the money to get more?: I choose not to answer this question Within the past 12 months, did you worry whether your food would run out before you got money to buy more?: I choose not to answer this question Do you have trouble paying for medicines?: No Do you have trouble getting transportation to medical appointments?: No Do you have trouble paying your heating and electricity bill?: No Do you have trouble taking care of your child, family member or friend?: No Do you have trouble with day-to-day activities such as bathing, preparing meals, shopping, managing finances, etc.?: No Are you currently unemployed and looking for a job?: No Are you interested in more education?: No Please select the resources that you would like help with: None Currently or been in a relationship where the following occur: No concerns reported THRIVE Score: 0 AUDIT C Alcohol Use Questionnaire (AUDIT-C) 1. How often do you have a drink containing alcohol?: Never 2. How many drinks containing alcohol do you have on a typical day when you are drinking?: 1 or 2 3. How often do you have six or more drinks on one occasion?: Never Total Score: 0 DUSTY-7 AMB Questionnaire DUSTY-7 Date DUSTY - 7 assessed: 02/27/25 Feeling nervous, anxious, or on edge: 0 = Not at all Not being able to stop or control worryin = Not at all Worrying too much about different things: 0 = Not at all Trouble relaxin = Not at all Being so restless that it is hard to sit still: 0 = Not at all Becoming easily annoyed or irritable: 0 = Not at all Feeling afraid as if something awful might happen: 0 = Not at all Total DUSTY-7 score (0-4 normal; 5-9 mild; 10-14 moderate; 15-21 severe): 0 Source: Developed by Drs. Gagandeep Tejeda, Sheryl Roca, Dallas Schneider and colleagues, with an educational alyson from [employer]. DUSTY-7 Assessment Billing DUSTY-7 Assessment Tool: DUSTY-7 Assessment 70489 Review of Systems Const Denies chills, Denies fatigue, Denies fever(s), Denies headache(s) and Denies weakness Eyes Denies change in vision ENT Denies dizziness, Denies headache(s), Denies hearing loss, Denies nasal congestion, Denies sinus pain, Denies sinus pressure and Denies sore throat Card Denies chest pain, Denies lightheadedness, Denies dyspnea and Denies other (palpitations) Resp Denies cough, Denies dyspnea and Denies wheezing GI Denies abdominal pain, Denies melena, Denies hematochezia, Denies change in bowel habits, Denies dyspepsia and Denies nausea Denies hematuria and Denies dysuria Musc Denies abnormal gait, Denies myalgias, Denies arthralgias, Denies numbness and Denies tingling Skin/Breast Denies rash, Denies unusual bruising and Denies wounds Neuro Denies abnormal gait, Denies dizziness, Denies headache(s), Denies memory loss, Denies numbness, Denies Sensory deficit (Neuro), Denies tingling and Denies weakness Psych Denies anxiety, Denies depression and Denies memory loss Endo Denies cold intolerance, Denies fatigue, Denies heat intolerance, Denies polydipsia and Denies polyuria Octavio/Lymph Denies easy bleeding and Denies easy bruising Aller/Immun Denies wheezing Physical exam (Primary Care) Vital Signs: Last Vital Signs Temp 97.6 F 02/27/25 09:29 Pulse 59 02/27/25 09:29 Resp 14 02/27/25 09:29 BP 120/80 02/27/25 09:29 Pulse Ox 98 02/27/25 09:29 Oxygen Delivery Method Room Air 02/27/25 09:29 BMI result Body Mass Index 25.6 Tobacco/Smoking Status: Tobacco use Status Tobacco use date assessed 02/27/25 02/27/25 09:32 Patient Tobacco Use Status Never used Tobacco 02/27/25 09:32 Tobacco use type 09/26/23 10:02 e-Cigarette/Vaping Use Never Used 02/27/25 09:32 PHQ-9: PHQ-9 Score PHQ-9: Total score 0 02/27/25 09:54 Depression Screening Interpretation: Negative Thrive Assessment: Date of Thrive Assessment Date Thrive assessed 02/27/25 02/27/25 09:32 Currently or been in a relationship where the following occur: No concerns reported Const General: no acute distress, well developed, alert and awake Nutritional Appearance: well nourished Orientation/consciousness: patient oriented x3 HENMT Head: Yes normocephalic and Yes atraumatic Ears: hearing grossly normal bilaterally and TM's normal bilaterally General nose exam: Normal external nose present and Normal nares present Mouth: Normal oral and palatal mucosa present and moist mucous membranes Teeth and gingiva: dentition normal Throat: Yes posterior oropharynx normal Eyes General: appearance normal, both eyes and all related structures Pupils: Equal, round and reactive pupils present and Pupil accommodation reflex normal EOM: EOMs intact bilaterally Neck Neck: Yes normal visual inspection, Yes no lymphadenopathy and Yes trachea midline Thyroid: Thyroid normal Carotids: no bruits Lymphatic: no lymphadenopathy noted Chest Chest palpation & inspection: normal inspection of the chest Resp Effort & Inspection: normal respiratory effort Auscultation: clear to auscultation bilaterally Cardio Rate: regular rate Rhythm: regular rhythm Heart sounds: S1 normal heart sound present, S2 normal heart sound present, no gallops, no murmurs and no rubs Bruits: no abdominal aortic bruits and no carotid bruits GI Palpation (GI): No Abdominal aortic bruit present, Soft to palpation, nontender, No hepatosplenomegaly present and No Rebound tenderness present Auscultation: normal bowel sounds General: Yes no CVA tenderness Back/Spine/Pelvis Back: no CVA tenderness Cervical Spine: cervical ROM normal and No Cervical spine tenderness Thoracic/Lumbar Spine: thoraco-lumbar ROM normal, No pain with thoraco-lumbar ROM, No thoracic spinal tenderness and No lumbar spinal tenderness Skin Lesions: no lesions Rashes: no rashes Trauma: no lacerations or abrasions Wounds: no wounds Nails: normal Neuro General: patient oriented x3 Cranial nerves: Yes Equal, round and reactive pupils present Cognition (Neuro): normal cognition Gait exam (Neuro): Normal gait present Motor exam (neuro): 5/5 motor strength present throughout Sensory Exam: No Sensory deficit (Neuro) Deep tendon reflexes (DTR's): Right patellar reflex intensity grade: 2+ and Left patellar reflex intensity grade: 2+ Extrem General: Yes normal to inspection and No edema Psych Appearance: grossly normal Affect: normal affect Attitude: cooperative Thought process: Normal thought process present Coding Level of Care Code Est Pt Level 3 (70383) New Pt Prev Care 40-64y(97116) Diagnoses Adult general medical exam Z00.00 Hypertension, essential I10 Screening for colon cancer Z12.11 Screening for prostate cancer Z12.5 Sleep apnea G47.30 Right knee pain M25.561 Additional Codes DUSTY-7 Assessment Billing - DUSTY-7 Assessment Tool: DUSTY-7 Assessment 64708 ([id number]) PHQ-9 - 55933 - PHQ-9 Billing: Yes ([id number]) Assessment & Plan Assessment & Plan (1) Adult general medical exam: Code(s): Z00.00 - Encounter for general adult medical examination without abnormal findings Category: Medical Plan: 65-year-old male presents for complete physical exam (2) Hypertension, essential: Code(s): I10 - Essential (primary) hypertension Category: Medical Plan: Blood pressure appears controlled in the office today but patient says his blood pressures are consistently too high when he wakes up in the morning. He will take losartan twice daily May also be having issues with sleep apnea-see below (3) Screening for colon cancer: Code(s): Z12.11 - Encounter for screening for malignant neoplasm of colon Category: Medical Plan: Will discuss at his follow-up visit (4) Screening for prostate cancer: Code(s): Z12.5 - Encounter for screening for malignant neoplasm of prostate Category: Medical Plan: Patient is getting labs drawn today and will discuss at following visit (5) Sleep apnea: Code(s): G47.30 - Sleep apnea, unspecified Category: Medical Plan: Patient notes that he has a history of sleep apnea with use of a CPAP machine No longer using this Notes that blood pressures are very high in the morning Patient should be re-evaluated by sleep medicine-referred (6) Right knee pain: Code(s): M25.561 - Pain in right knee Category: Medical Plan: History of knee pain He is using glucosamine chondroitin with good affect No longer has any swelling or pain I let him know that if he is having any further problem he can let me know and we will have him see ortho Orders: Orders Microalbumin, Random (w Creat) Today I10 - Essential (primary) hypertension TSH reflex Free T4 Today Z00.00 - Encounter for general adult medical examination without abnormal findings Comprehensive [place]. Panel Fast Today Z00.00 - Encounter for general adult medical examination without abnormal findings Prostate Specific Antigen Scr Today Z12.5 - Encounter for screening for malignant neoplasm of prostate Lipid Panel Today Z00.00 - Encounter for general adult medical examination without abnormal findings UA CC w/rflx Micro + Cult Today Z00.00 - Encounter for general adult medical examination without abnormal findings Complete Blood Count Auto Diff Today Z00.00 - Encounter for general adult medical examination without abnormal findings Referrals Sleep Medicine Referral G47.30 - Sleep apnea, unspecified Medications: Changed From losartan 25 mg PO DAILY 90 days 90 tabs 3RF To losartan 25 mg PO BID 180 tabs 3RF 90 days
[2025-02-27 09:29] VITALS: BP 120/80; PULSE 59; RESP 14; TEMP 36.4; O2SAT 98; BMI 25.6
== END 2025-02-27 10:13 | disposition home or self-care (01) ==
LOC: HO.HMCFM 08:50
PROVIDERS: PCP Family Medicine; Visit Provider Family Medicine
DX: Z00.00 Encounter for general adult medical examination without abnormal findings (principal); G47.30 Sleep apnea, unspecified; I10 Essential (primary) hypertension; M25.561 Pain in right knee; Z12.11 Encounter for screening for malignant neoplasm of colon; Z12.5 Encounter for screening for malignant neoplasm of prostate

== ENCOUNTER → 2025-02-27 08:49 | Outpatient (BNVA) | payer OTHER, SELFPAY | PROVIDERS: PCP Family Medicine; Visit Provider Family Medicine | DX: Z00.00 Encounter for general adult medical examination without abnormal findings (principal); I10 Essential (primary) hypertension; G47.30 Sleep apnea, unspecified; M25.561 Pain in right knee; Z79.899 Other long term (current) drug therapy; Z13.31 Encounter for screening for depression; Z13.39 Encounter for screening examination for other mental health and behavioral disorders | CPT/HCPCS: 96127 ==

== ENCOUNTER 2025-02-27 10:24 | Outpatient (REF) | payer OTHER, SELFPAY ==
[2025-02-27 12:15] LABS: MANUAL DIFF FLAG NO
[2025-02-27 12:19] LABS: Hematocrit 44.1 % (42.0-52.0); Hemoglobin 13.8 g/dl (14.0-18.0); Imm Gran Abs Auto 0.02 X10*3/uL (0.00-0.03); Imm Gran Pct Auto 0.3 % (0.0-0.4); Lymphocytes Absolute Auto 1.5 X10*3/uL (1.2-4.9); Mean Corpuscular HGB Conc 31.3 g/dl (31.0-36.0); Mean Corpuscular Hemoglobin 20.4 pg (27.0-33.0); Mean Corpuscular Volume 65.1 fL (80.0-98.0); NRBC Abs Auto 0.000 X10*3/uL (0.0-0.012); NRBC Pct Auto 0.0 /100WBC (0.0-0.2); Platelet Count 217 X10*3/uL (160-400); Red Blood Count 6.77 X10*6/uL (4.60-5.80); White Blood Count 6.0 X10*3/uL (4.8-10.8)
[2025-02-27 12:44] LABS: Appearance Urine Clear; Glucose Urine UA Negative (Negative); PH 7.5 (5.0-9.0); Specific Gravity - Urine 1.020 (1.005-1.025)
[2025-02-27 12:52] LABS: Microalbum/Creatinine Ratio Ur 4.7 ug/mg cr (<30)
[2025-02-27 13:27] LABS: Alanine Aminotransferase 29 U/L (0-40); Albumin Level 4.3 g/dL (3.5-5.0); Alkaline Phosphatase 48 U/L (39-117); Anion Gap 8 (12-20); Aspartate Amino Transferase 29 U/L (5-37); Blood Urea Nitrogen 14 mg/dL (9-16); Calcium 8.7 mg/dL (8.4-10.2); Carbon Dioxide 29 mmol/L (22-29); Chloride 109 mmol/L (96-108); Cholesterol 192 mg/dL (<200); Estimated Glomerular Filt Rate > 60; HDL Cholesterol 47 mg/dL (>40); Potassium 4.1 mmol/L (3.3-5.1); Sodium 142 mmol/L (135-145); Total Protein 7.0 g/dL (6.5-8.0); Triglycerides 108 mg/dL (<150)
== END 2025-02-27 10:25 | disposition home or self-care (01) ==
LOC: HO.WFDLDS 10:24
PROVIDERS: Visit Provider Family Medicine
DX: Z00.00 Encounter for general adult medical examination without abnormal findings (principal); Z12.5 Encounter for screening for malignant neoplasm of prostate; I10 Essential (primary) hypertension
CPT/HCPCS: 36415; 80053; 80061; 81003; 82043; 82570; 84153; 84443; 85025

== ENCOUNTER 2025-03-10 11:40 | Outpatient (AMB) | payer OTHER, SELFPAY ==
--- NOTE | 2025-03-10 11:53 | A.OFFPC_ITS ---
Vital Signs 03/10/25 11:57 Height 5 ft 7 in Weight 164 lb BMI 25.7 BP 120/68 Blood Pressure Location Rt brachial Position Sitting Respiration 14 Pulse 59 Pulse Source Pulse Oximeter Temp 98.0 F Temp Source Temporal Artery Scan Pulse Oximetry (%) 97 Oxygen Delivery Method Room Air Intake Visit Reasons: f/u CPE-labs in office Intake Note: Leon presents in the office today for his annual physical and lab review. Allergies No Known Allergies Allergy (Verified 03/10/25 11:56) Tobacco use date assessed: 03/10/25 Dental Screening Dental Screen Date: 03/10/25 Did you have a dental visit in the last 12 months?: Yes Did you have a dental problem in the last 6 months where you did not have access to dental care?: No Was dental information given to patient?: Patient has dentist HPI f/u CPE-labs in office HPI Details 65 y/o male presents to f/u labs and hyp ertension. Pt had noted BP had been high each morning - recommended him to take losartan b.i.d. Labs drawn 02/27/25. Reviewed labs with pt. Microcytic borderline anemia. Triglycerides 108. TC 192. LDL 124. HDL 47. PSA elevated at 4.10. BP today 120/68, 59p. He is on losartan 25mg b.i.d. PFSH Medical History HTN (hypertension) Surgical History Hx of colonoscopy History of lumbar surgery Family History Father No problems noted. Mother Diabetes Hypertension Sister Colon cancer Daughter In good health Son No problems noted. Son No problems noted. Social History (Updated 03/10/25 @ 11:57 by Kalpana Giang MA) Housing: House Alcohol intake: never Patient Tobacco Use Status: Never used Tobacco e-Cigarette/Vaping Use: Never Used Second Hand Smoke Exposure: No service: No Current occupational status: employed Cognitive needs: No Hearing needs: No Vision needs: Yes Questionnaire Thrive Questionnaire Date Thrive assessed: 02/27/25 I am a: Patient What is your living situation today?: I have a steady place to live Within the past 12 months, did the food you bought not last and you didn't have the money to get more?: I choose not to answer this question Within the past 12 months, did you worry whether your food would run out before you got money to buy more?: I choose not to answer this question Do you have trouble paying for medicines?: No Do you have trouble getting transportation to medical appointments?: No Do you have trouble paying your heating and electricity bill?: No Do you have trouble taking care of your child, family member or friend?: No Do you have trouble with day-to-day activities such as bathing, preparing meals, shopping, managing finances, etc.?: No Are you currently unemployed and looking for a job?: No Are you interested in more education?: No Please select the resources that you would like help with: None Currently or been in a relationship where the following occur: No concerns reported THRIVE Score: 0 DUSTY-7 AMB Questionnaire DUSTY-7 Date DUSTY - 7 assessed: 02/27/25 Source: Developed by Drs. Gagandeep Tejeda, Sheryl Roca, Dallas Schneider and colleagues, with an educational alyson from [employer]. Review of Systems Const Denies chills, Denies fatigue, Denies fever(s), Denies headache(s) and Denies weakness ENT Denies dizziness and Denies headache(s) Card Denies dyspnea Resp Denies cough, Denies dyspnea, Denies wheezing and Denies other (shortness of breath) Musc Denies numbness and Denies tingling Neuro Denies dizziness, Denies headache(s), Denies numbness, Denies tingling and Denies weakness Psych Denies anxiety and Denies depression Endo Denies fatigue Aller/Immun Denies wheezing Physical exam (Primary Care) Vital Signs: Last Vital Signs Temp 98.0 F 03/10/25 11:57 Pulse 59 03/10/25 11:57 Resp 14 03/10/25 11:57 BP 120/68 03/10/25 11:57 Pulse Ox 97 03/10/25 11:57 Oxygen Delivery Method Room Air 03/10/25 11:57 BMI result Body Mass Index 25.7 Tobacco/Smoking Status: Tobacco use Status Tobacco use date assessed 03/10/25 03/10/25 12:00 Patient Tobacco Use Status Never used Tobacco 03/10/25 11:57 Tobacco use type 02/27/25 10:29 e-Cigarette/Vaping Use Never Used 03/10/25 11:57 Thrive Assessment: Date of Thrive Assessment Date Thrive assessed 02/27/25 03/10/25 11:54 Currently or been in a relationship where the following occur: No concerns reported Const General: well developed; No acute distress Nutritional Appearance: well nourished Orientation/consciousness: patient oriented x3 HENMT Head: Yes normocephalic and Yes atraumatic Eyes General: appearance normal, both eyes and all related structures Pupils: Equal, round and reactive pupils present EOM: EOMs intact bilaterally Resp Effort & Inspection: normal respiratory effort Neuro General: patient oriented x3 and gait normal Cranial nerves: Yes Equal, round and reactive pupils present Psych Affect: normal affect Coding Level of Care Code Est Pt Level 4 (13125) Diagnoses Hypertension, essential I10 Borderline anemia D64.9 Elevated PSA R97.20 Elevated LDL cholesterol level E78.00 Assessment & Plan Assessment & Plan (1) Hypertension, essential: Code(s): I10 - Essential (primary) hypertension Category: Medical Plan: Blood pressure is controlled. Goal is less than 140/90 Continue current medication (2) Borderline anemia: Code(s): D64.9 - Anemia, unspecified Category: Medical Plan: Mild microcytic anemia Will give him a script for iron Will recheck H&H at next visit (3) Elevated PSA: Code(s): R97.20 - Elevated prostate specific antigen [PSA] Category: Medical Plan: PSA is mildly elevated. He does note some urinary changes Will repeat PSA with next blood draw. Can also try alfuzosin Follow-up in 2 months (4) Elevated LDL cholesterol level: Code(s): E78.00 - Pure hypercholesterolemia, unspecified Category: Medical Plan: LDL cholesterol is improved though still too high Encouraged diet lower in saturated fats and cholesterol We can recheck this at a subsequent visit Orders: Orders Reticulocyte Count Today D64.9 - Anemia, unspecified Complete Blood Count Auto Diff Today D64.9 - Anemia, unspecified, Z00.00 - Encounter for general adult medical examination without abnormal findings IRON PROFILE Today D64.9 - Anemia, unspecified Prostate Specific Antigen Scr Today R97.20 - Elevated prostate specific antigen [PSA], Z12.5 - Encounter for screening for malignant neoplasm of prostate Medications: New alfuzosin ER administer after the same meal each day 10 mg PO DAILY 30 tabs 2RF 30 days ferrous sulfate (Iron (ferrous sulfate)) 325 mg PO DAILY 30 tabs 2RF 30 days
[2025-03-10 11:57] VITALS: BP 120/68; PULSE 59; RESP 14; TEMP 36.7; O2SAT 97; BMI 25.7
--- OUTSIDE RECORDS SUMMARY | 2025-03-10 12:42 | XMS_ITS | Patient Health Record ---
Author Organization [facility] Address [address] [place] [address] Care Team Providers Care Veneer Glue Spreader Name Role Phone Katie Sparks Primary Care Provider Gagandeep Monge [phone] Allergies No Known Allergies Reason For Referral [...] Problem Status W/U Status Risk Notes Problem [id number] Encounter for screening for malignant neoplasm of colon (Z12.11) Active confirmed Problem 139766805 History of adenomatous polyp of colon (Z86.010) Active confirmed Problem History of polyp of colon (039556061) Personal history of colonic polyps (Z86.010) Active confirmed Problem Pre-procedure evaluation check (800337980) Encounter for other preprocedural examination (Z01.818) Active confirmed Problem Screening for malignant neoplasm of rectum (976029559) Encounter for screening for malignant neoplasm of rectum (Z12.12) Active confirmed Problem 06047941 Preprocedural examination (Z01.818) Active confirmed Problem 311367244 Family history o f colon cancer (Z80.0) Active confirmed Problem Diverticulosis of colon (381015680) Diverticulosis of colon (K57.30) Active confirmed Plan Of Treatment Pending Test Test Name Order Date Pathology 02/27/2022 Future Test Test Name Order Date COLONOSCOPY 02/03/2016 COLONOSCOPY 01/03/2022 Insurance Providers Payer Name Payer Address Payer Phone Subscriber Number Group Number Insured Name Patient Relationship to Insured Coverage Start Date Coverage End Date [employer] [place] [address] [address] [place] [address] [id number] DANIELLE RICH Self - patient is the insured Medical (General) History Medical History History ICD Code Colonoscopy 02/23/2010--2 tu bular adenomas removed; colonoscopy 2015 with 2 small tubular adenomas removed Denies MO,DM,CVA,Lung disease,renal dise ase Hypertension Surgical History Surgery Date(Month/Year) HERNIATED DISC IN BACK 14-15 YEARS AGO
--- OUTSIDE RECORDS SUMMARY | 2025-03-10 12:42 | XMS_ITS | Clinical Summary ---
Author Organization [facility] Address [address] [place] [id number] Phone Care Team Providers Care Credit Balance Specialist Name Role Phone Spenser Tadeo MD Primary Care Provider Allergies No known active allergies Medications losartan (COZAAR) 25 MG tablet Take 12.5 mg by mouth daily. 07/19/2023 Active Active Problems No known active problems Social History Tobacco Use Types Packs/Day Years Used Date Smoking Tobacco: Never Assessed Education Answer Date Recorded Are you interested in more education? Not on nain e 07/31/2023 Are you concerned about learning? Not on file 07/31/2023 No 07/31/2023 No 07/31/2023 Digital Access Answer Date Recorded No 07/31/2023 No 07/31/2023 Reliable internet access at home? Not on file 07/31/2023 Device with a working camera? Not on file Sex and Gender Information Value Date Recorded Sex Assigned at Not on file Legal Sex Male 5:31 PM EST Gender Identity Not on file Sexual Orientation Not on file Last Filed Vital Signs Vital Sign Reading Time Taken Comments Blood Pressure 151/83 07/31/2023 5:57 PM EST Pulse 68 07/31/2023 5:57 PM EST Temperature 36.6 C (97.9 F) 07/31/2023 5:57 PM EST Respiratory Rate 16 07/31/2023 5:57 PM EST Oxygen Saturation 98% 07/31/2023 5:57 PM EST Inhaled Oxygen Concentration - - Weight - - Height - - Body Mass Index - - Plan of Treatment Health Maintenance Due Date Last Done Comments Adult Td,Tdap Booster 1961 CREATININE LEVEL 1961 LIPID PANEL 1961 POTASSIUM LEVEL 1961 DEPRESSION SCREENING 1973 SMOKING Hx and SMOKELESS TOBACCO SCREENING 1974 HEPATITIS C SCREENING 1979 HIV ONE-TIME SCREENING (18-6 5 YEARS) 1979 COLOGUARD 2006 COLONOSCOPY 2006 COLORECTAL CANCER SCREENING 2006 FIT TEST 2006 FOBT 2006 SIGMOIDOSCOPY 2006 VIRTUAL COLONOSCOPY 2006 PNEUMOCOCCAL VACCINES (50+ years) (1 of 1 - PCV) 2011 ZOSTER VACCINES (1 of 2) 2011 COVID-19 VACCINE (3 - 2023-2 5 season) 2024 12/11/2020, 11/21/2020 RSV VACCINE (1 - 1-dose 75+ series) 01/16/2036 HEPATITIS A VACCINES Aged Out No long er eligible based on patient's age to complete this topic HIB VACCINES Aged Out No longer eligi ble based on patient's age to complete this topic MENINGOCOCCAL VACCINES (ACWY) Aged Out No longer eligible based on patient's age to complete this topic MENINGOCOCCAL VACCINES (B) Aged Out N o longer eligible based on patient's age to complete this topic Medical Devices Not on file Insurance [employer]MIN[employer] Care Teams Credit Balance Specialist Relationship Specialty Start Date End Date Spenser Tadeo MD [address] [place] [id number] PCP - General Family Medicine 07/31/23 Additional Source Comments The information contained in this document represents components of the legal health record. It is not the complete legal health record.[facility]
== END 2025-03-10 12:39 | disposition home or self-care (01) ==
PROVIDERS: PCP Family Medicine; Visit Provider Family Medicine
DX: I10 Essential (primary) hypertension (principal); D64.9 Anemia, unspecified; R97.20 Elevated prostate specific antigen [PSA]; E78.00 Pure hypercholesterolemia, unspecified

== ENCOUNTER 2025-05-04 13:12 | Outpatient (REF) | payer OTHER, SELFPAY ==
[2025-05-04 13:26] LABS: MANUAL DIFF FLAG NO
[2025-05-04 13:53] LABS: Hematocrit 41.4 % (42.0-52.0); Hemoglobin 13.2 g/dl (14.0-18.0); Imm Gran Abs Auto 0.02 X10*3/uL (0.00-0.03); Imm Gran Pct Auto 0.3 % (0.0-0.4); Lymphocytes Absolute Auto 1.6 X10*3/uL (1.2-4.9); Mean Corpuscular HGB Conc 31.9 g/dl (31.0-36.0); Mean Corpuscular Hemoglobin 20.4 pg (27.0-33.0); NRBC Abs Auto 0.000 X10*3/uL (0.0-0.012); NRBC Pct Auto 0.0 /100WBC (0.0-0.2); Platelet Count 204 X10*3/uL (160-400); Red Blood Count 6.47 X10*6/uL (4.60-5.80); Reticulocytes Absolute 0.129 X10*6/uL (0.026-0.095); White Blood Count 6.8 X10*3/uL (4.8-10.8)
[2025-05-04 13:55] LABS: Mean Corpuscular Volume 64.0 fL (80.0-98.0)
[2025-05-04 14:35] LABS: Iron 92 mcg/dL (45-160); Percent Iron Saturation 39 % (15-50); Total Iron Binding Capacity 235 mcg/dL (228-428); Unsaturated Iron Binding 143 ug/dL
--- OUTSIDE RECORDS SUMMARY | 2025-05-04 15:40 | XMS_ITS | Patient Health Record ---
Author Organization [facility] Address [address] [place] [address] Care Team Providers Care Lei Maker Name Role Phone Katie Sparks Primary Care Provider Gagandeep Monge [phone] Allergies No Known Allergies Reason For Referral [...] Problem Status W/U Status Risk Notes Problem 556228510 Encounter for screening for malignant neoplasm of colon (Z12.11) Active confirmed Problem 536432171 History of adenomatous polyp of colon (Z86.010) Active confirmed Problem History of polyp of colon (119580458) Personal history of colonic polyps (Z86.010) Active confirmed Problem Pre-procedure evaluation check (665242992) Encounter for other preprocedural examination (Z01.818) Active confirmed Problem Screening for malignant neoplasm of rectum (989444192) Encounter for screening for malignant neoplasm of rectum (Z12.12) Active confirmed Problem 91357466 Preprocedural examination (Z01.818) Active confirmed Problem 623190315 Family history o f colon cancer (Z80.0) Active confirmed Problem Diverticulosis of colon (291004131) Diverticulosis of colon (K57.30) Active confirmed Plan Of Treatment Pending Test Test Name Order Date Pathology 02/27/2022 Future Test Test Name Order Date COLONOSCOPY 02/03/2016 COLONOSCOPY 01/03/2022 Insurance Providers Payer Name Payer Address Payer Phone Subscriber Number Group Number Insured Name Patient Relationship to Insured Coverage Start Date Coverage End Date [employer] [place] [address] [address] [place] [address] [id number] 2 DANIELLE RICH Self - patient is the insured Medical (General) History Medical History History ICD Code Colonoscopy 02/23/2010--2 tu bular adenomas removed; colonoscopy 2015 with 2 small tubular adenomas removed Denies [place],DM,CVA,Lung disease,renal dise ase Hypertension Surgical History Surgery Date(Month/Year) HERNIATED DISC IN BACK 14-15 YEARS AGO
--- OUTSIDE RECORDS SUMMARY | 2025-05-04 15:40 | XMS_ITS | Clinical Summary ---
Author Organization [facility] Address [address] [place] [address] Phone Care Team Providers Care Voting Machine Repairer Name Role Phone Spenser Tadeo MD Primary [...] 2011 ZOSTER VACCINES (1 of 2) 2011 INFLUENZA VACCINE (#1) 2025 COVID-19 VACCINE (3 - 2024-2 6 season) 2025 12/11/2020, 11/21/2020 RSV VACCINE (1 - 1-dose [...] topic Medical Devices Not on file Insurance [facility] BENEFITS ADMINISTRATORS [employer] BENEFITS ADMINISTRATORS [employer] B[employer]EFITS [employer]MIN[employer]RAT[employer] BENEFITS ADMINISTRATORS [employer] BENEFITS ADMINISTRATORS [employer] ADMINISTRATORS Care Teams Voting Machine Repairer Relationship Specialty Start Date End Date Spenser Tadeo MD [address] [place] [id number] PCP - General Family Medicine 07/31/23 Additional Source Comments The information contained in this document represents components of the legal health record. It is not the complete legal health record.[facility]
== END 2025-05-04 13:13 | disposition home or self-care (01) ==
LOC: HO.LAB 13:12
PROVIDERS: PCP Family Medicine; Visit Provider Family Medicine
DX: Z00.00 Encounter for general adult medical examination without abnormal findings (principal); Z12.5 Encounter for screening for malignant neoplasm of prostate; D64.9 Anemia, unspecified; R97.20 Elevated prostate specific antigen [PSA]
CPT/HCPCS: 36415; 83540; 84153; 85025; 85045

== ENCOUNTER 2025-05-12 11:36 | Outpatient (AMB) | payer OTHER, SELFPAY ==
--- NOTE | 2025-05-12 11:41 | A.OFFPC_ITS ---
Vital Signs 05/12/25 11:46 Height 5 ft 7 in Weight 164 lb 4 oz BMI 25.7 BP 120/82 Blood Pressure Location Lt brachial Position Sitting Respiration 14 Pulse 77 Pulse Source Pulse Oximeter Temp 97.8 F Temp Source Temporal Artery Scan Pulse Oximetry (%) 97 Oxygen Delivery Method Room Air Intake Visit Reasons: f/u lipids, labs Intake Note: Leon presents in the office today for a follow up to his labs. Clinical Aide Required: Yes Clinical Aide Name: Darcy [id number] Information Interpreted: clinical only Allergies No Known Allergies Allergy (Verified 05/12/25 11:45) Tobacco use date assessed: 05/12/25 Dental Screening Dental Screen Date: 05/12/25 Did you have a dental visit in the last 12 months?: Yes Did you have a dental problem in the last 6 months where you did not have access to dental care?: No Was dental information given to patient?: Patient has dentist HPI f/u lipids, labs HPI Details 65 y/o male presents to f/u labs, anemia . Labs drawn 05/04/25. Reviewed labs with pt. Ongoing anemia, worsened since last draw. Has been taking iron supplements every day. Denies any blood in stools or abnormal stools. Reports urinary frequency. Had elevated PSA from labs drawn in February. Repeat labs show it is within normal range. [facility], [facility] Medical History HTN (hypertension) Surgical History Hx of colonoscopy History of lumbar surgery Family History Father No problems noted. Mother Diabetes Hypertension Sister Colon cancer Daughter In good health Son No problems noted. Son No problems noted. Social History (Updated 05/12/25 @ 11:46 by Kalpana Giagn CMA) Housing: House Alcohol intake: never Patient Tobacco Use Status: Never used Tobacco e-Cigarette/Vaping Use: Never Used Second Hand Smoke Exposure: No service: No Current occupational status: employed Cognitive needs: No Hearing needs: No Vision needs: Yes Questionnaire Thrive Questionnaire Date Thrive assessed: 02/20/25 I am a: Patient What is your living situation today?: I have a steady place to live Within the past 12 months, did the food you bought not last and you didn't have the money to get more?: I choose not to answer this question Within the past 12 months, did you worry whether your food would run out before you got money to buy more?: I choose not to answer this question Do you have trouble paying for medicines?: No Do you have trouble getting transportation to medical appointments?: No Do you have trouble paying your heating and electricity bill?: No Do you have trouble taking care of your child, family member or friend?: No Do you have trouble with day-to-day activities such as bathing, preparing meals, shopping, managing finances, etc.?: No Are you currently unemployed and looking for a job?: No Are you interested in more education?: No Please select the resources that you would like help with: None Currently or been in a relationship where the following occur: No concerns reported THRIVE Score: 0 DUSTY-7 AMB Questionnaire DUSTY-7 Date DUSTY - 7 assessed: 02/27/25 Source: Developed by Drs. Gagandeep Tejeda, Sheryl Roca, Dallas Schneider and colleagues, with an educational alyson from [employer]. Review of Systems Const Denies chills, Denies fatigue, Denies fever(s), Denies headache(s) and Denies weakness ENT Denies dizziness and Denies headache(s) Card Denies dyspnea Resp Denies cough, Denies dyspnea, Denies wheezing and Denies other (shortness of breath) Musc Denies numbness and Denies tingling Neuro Denies dizziness, Denies headache(s), Denies numbness, Denies tingling and Denies weakness Psych Denies anxiety and Denies depression Endo Denies fatigue Aller/Immun Denies wheezing Physical exam (Primary Care) Vital Signs: Last Vital Signs Temp 97.8 F 05/12/25 11:46 Pulse 77 05/12/25 11:46 Resp 14 05/12/25 11:46 BP 120/82 05/12/25 11:46 Pulse Ox 97 05/12/25 11:46 Oxygen Delivery Method Room Air 05/12/25 11:46 BMI result Body Mass Index 25.7 Tobacco/Smoking Status: Tobacco use Status Tobacco use date assessed 05/12/25 05/12/25 11:51 Patient Tobacco Use Status Never used Tobacco 05/12/25 11:46 Tobacco use type 02/27/25 10:29 e-Cigarette/Vaping Use Never Used 05/12/25 11:46 Thrive Assessment: Date of Thrive Assessment Date Thrive assessed 02/20/25 05/12/25 11:43 Currently or been in a relationship where the following occur: No concerns reported Const General: well developed; No acute distress Nutritional Appearance: well nourished Orientation/consciousness: patient oriented x3 HEN[place] Head: Yes normocephalic and Yes atraumatic Eyes General: appearance normal, both eyes and all related structures Pupils: Equal, round and reactive pupils present EOM: EOMs intact bilaterally Resp Effort & Inspection: normal respiratory effort Neuro General: patient oriented x3 and gait normal Cranial nerves: Yes Equal, round and reactive pupils present Psych Affect: normal affect Coding Level of Care Code Est Pt Level 4 (92747) Diagnoses Mild anemia D64.9 Elevated PSA R97.20 Urinary frequency R35.0 Elevated LDL cholesterol level E78.00 Assessment & Plan Assessment & Plan (1) Mild anemia: Code(s): D64.9 - Anemia, unspecified Category: Medical Plan: Mild microcytic anemia which has worsened slightly despite iron supplement which he is taking every day. Retic count is appropriately high May represent blood loss the patient denies any GI bleeding or other blood loss. May have an absorption difficulties. Will refer him to Hematology-Oncology and also Gastroenterology (2) Elevated PSA: Code(s): R97.20 - Elevated prostate specific antigen [PSA] Category: Medical Plan: PSA was elevated and repeat PSA is 3.68 which is in high normal range. Patient still notes urinary symptoms which were not improve with alfuzosin Referred to Urology for urinary frequency (3) Urinary frequency: Code(s): R35.0 - Frequency of micturition Category: Medical Plan: As above No dysuria (4) Elevated LDL cholesterol level: Code(s): E78.00 - Pure hypercholesterolemia, unspecified Category: Medical Plan: LDL cholesterol is too high. Goal is less than 100 Reviewed foods high in saturated fats and cholesterol and he will work on reducing these We did discuss that if cholesterol is still high we should use medication to control it Orders: Orders Complete Blood Count Auto Diff Today D64.9 - Anemia, unspecified, Z00.00 - Encounter for general adult medical examination without abnormal findings IRON PROFILE Today D64.9 - Anemia, unspecified Lipid Panel Today E78.00 - Pure hypercholesterolemia, unspecified, Z00.00 - Encounter for general adult medical examination without abnormal findings Comprehensive [place]. Panel Fast Today E78.00 - Pure hypercholesterolemia, unspecified, Z00.00 - Encounter for general adult medical examination without abnormal findings Referrals Urology Referral R33.9 - Retention of urine, unspecified, R35.0 - Frequency of micturition, R97.20 - Elevated prostate specific antigen [PSA] Gastroenterology Referral D64.9 - Anemia, unspecified Hematology & Oncology Referral D64.9 - Anemia, unspecified
[2025-05-12 11:46] VITALS: BP 120/82; PULSE 77; RESP 14; TEMP 36.6; O2SAT 97; BMI 25.7
--- OUTSIDE RECORDS SUMMARY | 2025-05-12 14:12 | XMS_ITS | Clinical Summary ---
Author Organization [facility] Address [address] [place] [id number] Phone Care Team Providers Care Operations Coordinator Name Role Phone Spenser Tadeo MD Primary [...] topic Medical Devices Not on file Insurance [facility] BENEFITS ADMINISTRATORS [employer] B[employer]MIN[employer]EFITS ADMINISTRATORS [employer] ADMINISTRATORS Care Teams Operations Coordinator Relationship Specialty Start Date End Date Spenser Tadeo MD [address] [place] [id number] PCP - General Family Medicine 07/31/23 Additional Source Comments The information contained in this document represents components of the legal health record. It is not the complete legal health record.[facility]
--- OUTSIDE RECORDS SUMMARY | 2025-05-12 14:12 | XMS_ITS | Patient Health Record ---
Author Organization [facility] Address [address] [place] [address] Care Team Providers Care Church Administrator Name Role Phone Katie Sparks Primary Care Provider Gagandeep Monge [phone] Allergies No Known Allergies Reason For Referral No Information Medications Medication SIG (Take, Route, Frequency, Duration) Notes Start Date End Date Status Losartan Potassium 25 MG Oral; Duration: 30 Active Vitamin D 25 MCG (1000 UT) 1 tablet Oral ly Once a day; Duration: 30 day(s) Active Immunizations Vaccine Route Administration Date Status Comme nts Influenza Unknown 01/03/2022 Refused Problems Problem Type SNOMED Code ICD Code Onset Dates Problem Status W/U Status Risk Notes Problem Screening for malignant neoplasm of colon (912905057) Encounter for screening for malignant neoplasm of colon (Z12.11) Active confirmed Problem History of adenomatous polyp of colon (745715507) History of adenomatous polyp of colon (Z86.010) Active confirmed Problem History of polyp of colon (situation) (062566036) Personal history of colonic polyps (Z86.010) Active confirmed Problem Pre-procedure evaluation check (779952411) Encounter for other preprocedural examination (Z01.818) Active confirmed Problem Screening for malignant neoplasm of rectum (606555201) Encounter for screening for malignant neoplasm of rectum (Z12.12) Active confirmed Problem Preprocedural examination (580145512450414) Preprocedural examination (Z01.818) Active confirmed Problem Family History of Cancer of Colon (Situation) (323456854) Family history of colon cancer (Z80.0) Active confirmed Problem Diverticulosis of colon (259460273) Diverticulosis of colon (K57.30) Active confirmed Plan Of Treatment Pending Test Test Name Order Date Pathology 02/27/2022 Future Test Test Name Order Date COLONOSCOPY 02/03/2016 COLONOSCOPY 01/03/2022 Insurance Providers Payer Name Payer Address Payer Phone Subscriber Number Group Number Insured Name Patient Relationship to Insured Coverage Start Date Coverage End Date [employer] [place] [address] [address] [place] [address] [id number] DANIELLE RICH Self - patient is the insured Medical (General) History Medical History History ICD Code Colonoscopy 02/23/2010--2 tu bular adenomas removed; colonoscopy 2015 with 2 small tubular adenomas removed Denies [place],DM,CVA,Lung disease,renal dise ase Hypertension Surgical History Surgery Date(Month/Year) HERNIATED DISC IN BACK 14-15 YEARS AGO
== END 2025-05-12 12:09 | disposition home or self-care (01) ==
LOC: HO.HMCFM 11:37
PROVIDERS: PCP Family Medicine; Visit Provider Family Medicine
DX: D64.9 Anemia, unspecified (principal); R97.20 Elevated prostate specific antigen [PSA]; R35.0 Frequency of micturition; E78.00 Pure hypercholesterolemia, unspecified

== ENCOUNTER 2025-07-09 08:00 | Outpatient (REF) | payer OTHER, SELFPAY ==
[2025-07-09 11:08] LABS: MANUAL DIFF FLAG NO
[2025-07-09 11:14] LABS: Hematocrit 45.7 % (42.0-52.0); Hemoglobin 14.2 g/dl (14.0-18.0); Imm Gran Abs Auto 0.04 X10*3/uL (0.00-0.03); Imm Gran Pct Auto 0.6 % (0.0-0.4); Lymphocytes Absolute Auto 1.5 X10*3/uL (1.2-4.9); Mean Corpuscular HGB Conc 31.1 g/dl (31.0-36.0); Mean Corpuscular Hemoglobin 20.4 pg (27.0-33.0); Mean Corpuscular Volume 65.6 fL (80.0-98.0); NRBC Abs Auto 0.000 X10*3/uL (0.0-0.012); NRBC Pct Auto 0.0 /100WBC (0.0-0.2); Platelet Count 231 X10*3/uL (160-400); Red Blood Count 6.97 X10*6/uL (4.60-5.80); White Blood Count 6.7 X10*3/uL (4.8-10.8)
[2025-07-09 11:38] LABS: Alanine Aminotransferase 32 U/L (0-40); Albumin Level 4.3 g/dL (3.5-5.0); Alkaline Phosphatase 47 U/L (39-117); Anion Gap 12 (12-20); Aspartate Amino Transferase 31 U/L (5-37); Blood Urea Nitrogen 20 mg/dL (9-16); Calcium 9.2 mg/dL (8.4-10.2); Carbon Dioxide 28 mmol/L (22-29); Chloride 105 mmol/L (96-108); Cholesterol 203 mg/dL (<200); Estimated Glomerular Filt Rate > 60; HDL Cholesterol 56 mg/dL (>40); Iron 145 mcg/dL (45-160); Percent Iron Saturation 59 % (15-50); Potassium 4.5 mmol/L (3.3-5.1); Sodium 140 mmol/L (135-145); Total Iron Binding Capacity 245 mcg/dL (228-428); Total Protein 7.0 g/dL (6.5-8.0); Triglycerides 63 mg/dL (<150); Unsaturated Iron Binding 100 ug/dL
== END 2025-07-09 08:01 ==
LOC: HO.WFDLDS 08:00
PROVIDERS: Visit Provider Family Medicine
DX: Z00.00 Encounter for general adult medical examination without abnormal findings (principal); E78.00 Pure hypercholesterolemia, unspecified; D64.9 Anemia, unspecified
CPT/HCPCS: 36415; 80053; 80061; 83540; 85025

== ENCOUNTER → 2025-07-13 13:02 | Outpatient (BNV) | payer OTHER, SELFPAY | PROVIDERS: PCP Family Medicine; Referring Provider Family Medicine; Visit Provider Nurse Practitioner Family | DX: D64.9 Anemia, unspecified (principal) | CPT/HCPCS: 99204 ==

== ENCOUNTER 2025-07-14 11:39 | Outpatient (AMB) | payer OTHER, SELFPAY ==
--- NOTE | 2025-07-14 11:46 | A.OFFPC_ITS ---
Vital Signs 07/14/25 11:50 Height 5 ft 6 in Weight 166 lb BMI 26.8 BP 138/78 Blood Pressure Location Rt brachial Position Sitting Respiration 14 Pulse 68 Pulse Source Pulse Oximeter Temp 97.8 F Temp Source Temporal Artery Scan Pulse Oximetry (%) 95 Oxygen Delivery Method Room Air Intake Visit Reasons: f/u lipids, anemia Intake Note: Leon presents in the office today to follow up to his lipids and anemia. Chain Link Fence Installer Required: No Area Manager: Offered and Declined Allergies No Known Allergies Allergy (Verified 07/14/25 11:55) Medication List - Last Reconciled 07/14/25 by Spenser Tadeo MD alfuzosin ER 10 mg PO DAILY 30 days blood pressure monitor Automatic, Digital. Dx: I10. Daily As directed, 999 days /lifetime glucosamine pearson 2KCl-chondroit 500-400 mg (Glucosamine-Chondroitin DS) 1 cap PO DAILY losartan 25 mg PO BID 90 days [vitamin U02-xnzzc acid 1,000 mg PO DAILY] [vitamin D3-vitamin K2 5,000 mg PO DAILY] Tobacco use date assessed: 07/14/25 Dental Screening Dental Screen Date: 07/14/25 Did you have a dental visit in the last 12 months?: Yes Did you have a dental problem in the last 6 months where you did not have access to dental care?: No Was dental information given to patient?: Patient has dentist HPI f/u lipids, anemia HPI Details 65 y/o male presents to f/u lipids, anem ia. Labs drawn 07/09/25, 07/13/25. Reviewed labs with pt. Ongoing mild anemia. [facility] Triglycerides 63. TC 203. LDL 135. HDL 56. BP today 138/78, 68p. He is on losartan 25mg b.i.d. [facility] Medical History (Updated 07/14/25 @ 12:16 by Curtis Diallo) Thalassemia HTN (hypertension) Surgical History Hx of colonoscopy History of lumbar surgery Family History Father No problems noted. Mother Diabetes Hypertension Sister Colon cancer Daughter In good health Son No problems noted. Son No problems noted. Social History (Updated 07/14/25 @ 11:50 by Kalpana Giang CMA) Household Members: Significant Other Housing: House Alcohol intake: never Patient Tobacco Use Status: Never used Tobacco e-Cigarette/Vaping Use: Never Used Second Hand Smoke Exposure: No service: No Current occupational status: employed Cognitive needs: No Hearing needs: No Vision needs: Yes Questionnaire Thrive Questionnaire Date Thrive assessed: 02/20/25 I am a: Patient What is your living situation today?: I have a steady place to live Within the past 12 months, did the food you bought not last and you didn't have the money to get more?: I choose not to answer this question Within the past 12 months, did you worry whether your food would run out before you got money to buy more?: I choose not to answer this question Do you have trouble paying for medicines?: No Do you have trouble getting transportation to medical appointments?: No Do you have trouble paying your heating and electricity bill?: No Do you have trouble taking care of your child, family member or friend?: No Do you have trouble with day-to-day activities such as bathing, preparing meals, shopping, managing finances, etc.?: No Are you currently unemployed and looking for a job?: No Are you interested in more education?: No Please select the resources that you would like help with: None Currently or been in a relationship where the following occur: No concerns reported THRIVE Score: 0 DUSTY-7 AMB Questionnaire DUSTY-7 Date DUSTY - 7 assessed: 02/27/25 Source: Developed by Drs. Gagandeep Tejeda, Sheryl Roca, Dallas Schneider and colleagues, with an educational alyson from [employer]. Review of Systems Const Denies chills, Denies fatigue, Denies fever(s), Denies headache(s) and Denies weakness ENT Denies dizziness and Denies headache(s) Card Denies chest pain, Denies lightheadedness, Denies dyspnea and Denies other (Palpitations) Resp Denies cough, Denies dyspnea, Denies wheezing and Denies other ( shortness of breath) Musc Denies numbness and Denies tingling Neuro Denies dizziness, Denies headache(s), Denies numbness, Denies tingling, Denies paresthesias and Denies weakness Psych Denies anxiety and Denies depression Endo Denies fatigue Aller/Immun Denies wheezing Physical exam (Primary Care) Vital Signs: Last Vital Signs Temp 97.8 F 07/14/25 11:50 Pulse 68 07/14/25 11:50 Resp 14 07/14/25 11:50 BP 138/78 07/14/25 11:50 Pulse Ox 95 07/14/25 11:50 Oxygen Delivery Method Room Air 07/14/25 11:50 BMI result Body Mass Index 26.8 Tobacco/Smoking Status: Tobacco use Status Tobacco use date assessed 07/14/25 07/14/25 11:51 Patient Tobacco Use Status Never used Tobacco 07/14/25 11:50 Tobacco use type 02/27/25 10:29 e-Cigarette/Vaping Use Never Used 07/14/25 11:50 Thrive Assessment: Date of Thrive Assessment Date Thrive assessed 02/20/25 07/14/25 11:47 Currently or been in a relationship where the following occur: No concerns reported Const General: no acute distress and well developed Nutritional Appearance: well nourished Orientation/consciousness: [facility]: Yes normocephalic and Yes atraumatic Eyes General: appearance normal, both eyes and all related structures Pupils: Equal, round and reactive pupils present EOM: EOMs intact bilaterally Resp Effort & Inspection: normal respiratory effort Auscultation: clear to auscultation bilaterally Cardio Rate: regular rate Rhythm: regular rhythm Heart sounds: S1 normal heart sound present, S2 normal heart sound present, no gallops, no murmurs and no rubs Neuro General: patient oriented x3 and gait normal Cranial nerves: Yes Equal, round and reactive pupils present Psych Affect: normal affect Coding Level of Care Code Est Pt Level 4 (48324) Diagnoses Hypertension, essential I10 Mild anemia D64.9 Thalassemia D56.9 Elevated LDL cholesterol level E78.00 Incomplete bladder emptying R33.9 Assessment & Plan Assessment & Plan (1) Hypertension, essential: Code(s): I10 - Essential (primary) hypertension Category: Medical Plan: Blood pressure is controlled. Goal is less than 140/90 Continue current medication (2) Mild anemia: Code(s): D64.9 - Anemia, unspecified Category: Medical Plan: Mild microcytic anemia which did not improve with iron Followed by Hematology-Oncology and patient now notes that he has a history of thalassemia. However retic count is elevated - I had referred him to Gastroenterology as he may also have some blood loss. Patient has not made appointment and I recommended that do so. Follow-up with Hematology-Oncology as recommended Follow-up with GI (3) Thalassemia: Code(s): D56.9 - Thalassemia, unspecified Category: Medical Plan: As above, now followed by Hematology-Oncology and workup is ongoing. (4) Elevated LDL cholesterol level: Code(s): E78.00 - Pure hypercholesterolemia, unspecified Category: Medical Plan: Start atorvastatin Will recheck in 3 months (5) Incomplete bladder emptying: Code(s): R33.9 - Retention of urine, unspecified Category: Medical Plan: Patient notes that symptoms are manageable He is drinking plenty of fluids and declines referral to Urology at this time. PSA was mildly elevated and decreased into upper normal range He would like to hold off on urology visit at this time. Orders: Orders Lipid Panel Today E78.00 - Pure hypercholesterolemia, unspecified, Z00.00 - Encounter for general adult medical examination without abnormal findings Comprehensive [place]. Panel Fast Today E78.00 - Pure hypercholesterolemia, unspecified, Z00.00 - Encounter for general adult medical examination without abnormal findings Complete Blood Count Auto Diff Today D56.9 - Thalassemia, unspecified, Z00.00 - Encounter for general adult medical examination without abnormal findings Medications: New atorvastatin (Lipitor) 20 mg PO BEDTIME 90 tabs 3RF 90 days
[2025-07-14 11:50] VITALS: BP 138/78; PULSE 68; RESP 14; TEMP 36.6; O2SAT 95; BMI 26.8
--- OUTSIDE RECORDS SUMMARY | 2025-07-14 15:28 | XMS_ITS | Patient Health Record ---
Author Organization [facility] Address [address] [place] [address] Care Team Providers Care Communications Programmer Name Role Phone Katie Sparks Primary Care Provider Gagandeep Monge [phone] Allergies No Known Allergies Reason For Referral No Information Medications Medication SIG (Take, Route, Frequency, Duration) Notes Start Date End Date Status Losartan Potassium 25 MG Tablet Oral; Duration: 30 Active Vitamin D 25 MCG (1000 UT) Tablet 1 tablet Orally Once a day; Duration: 30 day(s) Active Immunizations Vaccine Route Administration Date Status Comme nts Influenza Unknown 01/03/2022 Refused Social History Social History Additional Details Category Social Info Options Details Miscellaneous: Marital status: Occupation: [employer] Section Notes: Nonsmoker; no sig alcohol Nonsmoker; no sig alcohol Problems Problem Type SNOMED Code ICD Code Onset Dates Problem Status W/U Status Risk Notes Problem Screening for malignant neoplasm of colon (542717018) Encounter for screening for malignant neoplasm of colon (Z12.11) Active confirmed Problem History of adenomatous polyp of colon (641478231) History of adenomatous polyp of colon (Z86.010) Active confirmed Problem History of polyp of colon (situation) (351470003) Personal history of colonic polyps (Z86.010) Active confirmed Problem Pre-procedure evaluation check (968160536) Encounter for other preprocedural examination (Z01.818) Active confirmed Problem Screening for malignant neoplasm of rectum (985418416) Encounter for screening for malignant neoplasm of rectum (Z12.12) Active confirmed Problem Preprocedural examination (214146271028271) Preprocedural examination (Z01.818) Active confirmed Problem Family History of Cancer of Colon (Situation) (740397182) Family history of colon cancer (Z80.0) Active confirmed Problem Diverticulosis of colon (077806489) Diverticulosis of colon (K57.30) Active confirmed Plan Of Treatment Pending Test Test Name Order Date Pathology 02/27/2022 Future Test Test Name Order Date COLONOSCOPY 02/03/2016 COLONOSCOPY 01/03/2022 Insurance Providers Payer Name Payer Address Payer Phone Subscriber Number Group Number Insured Name Patient Relationship to Insured Coverage Start Date Coverage End Date [employer] [place] [address] [address] [place] [address] [id number] DANIELLE RICH Self - patient is the insured Medical (General) History Medical History History ICD Code Colonoscopy 02/23/2010--2 tu bular adenomas removed; colonoscopy 2015 with 2 small tubular adenomas removed Denies MO,DM,CVA,Lung disease,renal dise ase Hypertension Surgical History Surgery Date(Month/Year) HERNIATED DISC IN BACK 14-15 YEARS AGO
--- OUTSIDE RECORDS SUMMARY | 2025-07-14 15:29 | XMS_ITS | Clinical Summary ---
Author Organization [facility] Address [address] [place] [id number] Phone Care Team Providers Care Road Supervisor Of Engines Name Role Phone Spenser Tadeo MD Primary [...] topic Medical Devices Not on file Insurance [facility] [employer] B[employer] ADMINISTRATORS Care Teams Road Supervisor Of Engines Relationship Specialty Start Date End Date Spenser Tadeo MD PCP - General Family Medicine 07/31/23 Additional Source Comments The information contained in this document represents components of the legal health record. It is not the complete legal health record.[facility]
== END 2025-07-14 12:12 | disposition home or self-care (01) ==
LOC: HO.HMCFM 11:40
PROVIDERS: PCP Family Medicine; Visit Provider Family Medicine
DX: I10 Essential (primary) hypertension (principal); D64.9 Anemia, unspecified; D56.9 Thalassemia, unspecified; E78.00 Pure hypercholesterolemia, unspecified; R33.9 Retention of urine, unspecified